=== PATIENT | male | born 1960 | race Caucasian/White ===

== ENCOUNTER 2022-01-31 15:00 | Outpatient (RCR) | payer BC, SELFPAY ==
[2022-01-31 15:04] VITALS: BMI 30.9
[2022-01-31 16:16] VITALS: BMI 30.9
== END 2022-04-18 15:06 | disposition home or self-care (01) ==
LOC: ANHDMC 15:00
PROVIDERS: PCP Internal Medicine; Visit Provider Internal Medicine
DX: E11.65 Type 2 diabetes mellitus with hyperglycemia (principal); Z71.89 Other specified counseling; Z71.3 Dietary counseling and surveillance
CPT/HCPCS: 97802; G0108

== ENCOUNTER 2024-03-18 01:13 | Day surgery (SDC) | payer OTHER, SELFPAY ==
[2024-03-05 14:13] VITALS: BMI 30.7
[2024-03-18 09:28] VITALS: BP 139/111; PULSE 68; RESP 18; TEMP 36.6; O2SAT 97; BMI 31.4
[2024-03-18] MEDS: LACTATED RINGERS 1,000 ML 150 ML IV CONT (09:39)
[2024-03-18 09:41] LABS: Glucose Point of Care 151 mg/dl (65-105)
--- NOTE | 2024-03-18 10:35 | PM.IMHP ---
H&P: HPI History of Present Illness Date/Time: 03/18/24 10:35 Chief Complaint: Screening colonoscopy Narrative: This is the patient's first colonoscopy. There are no GI symptoms and there is no family history of colorectal cancer. Review of Systems Review of Systems: All systems reviewed & are unremarkable except as noted in HPI and below [facility] Past Medical History Medical History (Updated 03/18/24 @ 10:36 by Aguila William MD) Diabetes type 2, controlled Hyperlipidemia Hypertension Social History Social History Smoking status: Never smoker Alcohol intake: current Drinks per week: 6 Substance use: current Substance use type: marijuana Other substance usage details: Gummies Living arrangements: with family Additional living arrangements comments: with sp Spiritual care concerns: No Meds Home Medications and Allergies Home Medications Medication Instructions Recorded Confirmed Type glimepiride 4 mg tablet 4 mg PO BID 03/05/24 03/18/24 History hydrochlorothiazide 12.5 mg tablet 12.5 mg PO DAILY 03/05/24 03/18/24 History hydrocodone 5 mg-acetaminophen 325 1 tablet PO Q6H PRN pain 03/05/24 03/05/24 History mg tablet insulin degludec 100 unit/mL (3 20 unit subcut DAILY 03/05/24 03/18/24 History mL) subcutaneous pen (Tresiba FlexTouch U-100 insulin) lisinopril 20 mg tablet 20 mg PO DAILY 03/05/24 03/18/24 History lorazepam 2 mg tablet 2 mg PO HS PRN sleep 03/05/24 03/05/24 History metformin 500 mg tablet 500 mg PO BID 03/05/24 03/18/24 History omeprazole 20 mg capsule,delayed 20 mg PO DAILY 03/05/24 03/18/24 History release rosuvastatin 40 mg tablet 40 mg PO DAILY 03/05/24 03/18/24 History Allergies Allergy/AdvReac Type Severity Reaction Status Date / Time No Known Allergies Allergy Verified 03/18/24 09:27 Vital Signs Vital Signs - 24 hr 03/18/24 09:28 Temperature 97.9 F Pulse Rate 68 Respiratory Rate 18 Blood Pressure 139/111 H Pulse Oximetry 97 Oxygen Delivery Room Air Exam Const: General: cooperative and healthy appearing Resp: Effort & Inspection: normal respiratory effort and able to speak in complete sentences Auscultation: clear to auscultation bilaterally Cardio: Rate: regular rate Rhythm: regular rhythm GI: Inspection: normal to inspection GI Palp: No No hepatosplenomegaly present Auscultation: normal bowel sounds Rectal Exam: deferred Skin: General skin exam: normal color Psych: Appearance: grossly normal Mental Status: mental status grossly normal Assessment and Plan Assessment and plan (1) Encounter for screening colonoscopy: Code(s): Z12.11 - Encounter for screening for malignant neoplasm of colon Status: Acute Assessment and Plan: The patient is deemed a good candidate for the procedure. Consent signed. Will proceed.
[2024-03-18] MEDS: SIMETHICONE ORAL SUSPENSION 20 MG/0.3 ML 30 ML BOTTLE 0.6 ML IRRIGATION (10:58)
[2024-03-18 11:50] VITALS: BP 116/76; PULSE 59; RESP 18; O2SAT 99
[2024-03-18 12:00] VITALS: BP 107/69; PULSE 61; RESP 18; O2SAT 97
[2024-03-18 12:10] VITALS: BP 107/71; PULSE 60; RESP 18; O2SAT 98
[2024-03-18 12:24] LABS: Glucose Point of Care 114 mg/dl (65-105)
--- OUTSIDE RECORDS SUMMARY | 2024-03-19 03:46 | XMS_ITS | Data Portability ---
Author Organization [place] [facility] [employer], Main Office Address [address] [place] [address] Assessment No assessment recorded. Plan of Treatment Reminders Order Date Submit Date Provider Last Modified By Organization Details Last Modified Time Details Appointments None recorded. Lab fructosam ine, serum 023 023 [email or web address] [facility], [address], [place], [address], 3 17:17:02 lipid panel, serum 024 ARUNAdvisor Client [facility], [address], [place], [address], 4 12:04:28 CMP, serum or plasma 024 ARUNAdvisor Client [facility], [address], [place], [address], 4 12:04:32 TSH, serum or plasma 024 024 ARUNAdvisor Client [facility], [address], [place], [address], 4 12:04:38 T4, free, serum 024 ARUNBaseTrace [facility], [address], [place], [address], 4 12:04:35 PSA, serum or plasma 024 024 ARUNAdvisor Client [facility], [address], [place], [address], 4 12:04:37 magnesium , serum or plasma 024 ARUN [facility], [address], [place], [address], 4 12:04:31 vitamin B12, serum 024 ARUN [facility], [address], [place], [address], 4 12:04:36 HbA1c (hemoglob in A1c), blood 024 MISHICOT [facility], [address], [place], [address], 4 12:04:39 microalbu min/creat inine, mass ratio, urine 024 MISHICOT [facility], [address], [place], [address], 4 12:04:30 CBC w/ auto diff 024 MISHICOT [facility], [address], [place], [address], 4 12:04:33 lipid panel, serum 024 [email or web address] [facility], [address], [place], [address], 4 16:30:56 CMP, serum or plasma 024 [email or web address] [facility], [address], [place], [address], 4 16:30:56 HbA1c (hemoglob in A1c), blood 024 [email or web address] [facility], [address], [place], [address], 4 16:30:56 CBC w/ auto diff 024 024 [email or web address] [facility], [address], [place], [address], 4 16:30:55 Referral None recorded. Procedures None recorded. Surgeries None recorded. Imaging None recorded. Medication Orders None recorded. Patient TargetsNo targets recorded. Patient Instructions Encounter Date Encounter Id Patient Instructions Last Modified By Organization Details Last Modified Time 10/01/2022 [id number] risk assessment* [email or web address] Not availabl e 10/01/2022 16:39:08 INFLUENZA VACCIN E TD/TDAP Recommended today, patient declined Ordered Pa tient will get at local pharmacy/health department PNEUMONIA VACCINE Ordered Recommended today, patient declined Patient will get at local pharmacy/health department Recommen ded at age 65 SHINGLES PSA Ordered No screening necessary patient is up to date COLORECTAL SCREENING DEPRESSION SCREENING Negative BMI Overweight continue your current weight loss efforts try to lose 5% of your body weight try to lose 10% of your body weight NUTRITION PHYSICAL ACTIVITY ALCOHOL USE No alcohol use Occasional/Soci al Use TOBACCO USE LUNG CANCER SCREENING Non Smoker-not indicated SEXUALLY ACTIVE HEPATITIS C SCREENING Not indicated GLUCOSE SCREENING LIPID SCREENING [email or web address] Not available 10/01/2022 16:29:40 Well patient's evaluation risk assessment stable. Follow-up for hypertension-hyperl ipidemia - type 2 diabetes -GERD. Clinically stable. Hemoglobin A1c was 8.2 down from over 14. Increase the glimepiride to 4 mg the morning two in the afternoon. Instructed to call us when he needs a refill so we can change him over to 4 mg tablets. Will repeat a fructosamine level in approximately two weeks after increasing the medication to see if there is in been any improvement in the calculated hemoglobin A1c. 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 Will check a MRI of the cervical Standard immunizations of RSV, COVID, influenza and shingles as recommended spine without contrast. Continue on current Rx follow-up in four months. Portions of the record may have been created with voice recognition software. Occasional wrong-word or â fverx-b-upwlâ substitutions may have occurred due to the inherent limitations of voice recognition software. Read the chart carefully and recognize, using context, where substitutions have occurred. MRI of the cervical spine without contrast for cervical myelopathy Next Appt: 4 Months Approximate Date: 03/29/2023 Not available 11/29/2022 15:43:18 04/04/2023 [id number] Hypertension -hyperlipidemia - type 2 diabetes -obesity class one-GERD clinically stable. Will check blood work consisting of CBC, CMP, lipid, thyroid, hemoglobin A1c and PSA. Will also check a B12 and magnesium level. Will start on some Semaglutide 0.25 mg weekly. Continue on current Rx recheck weight in approximately one month. Follow-up in four months Portions of the record may have been created with voice recognition software. Occasional wrong-word or â frkkz-v-rgftâ substitutions may have occurred due to the inherent limitations of voice recognition software. Read the chart carefully and recognize, using context, where substitutions have occurred. [email or web address] Not available 04/04/2023 15:48:13 07/31/2023 [id number] Follow-up essent ial hypertension, hyperlipidemia, type 2 diabetes, testicular hypofunction and obesity class two. All clinically stable. Check blood work consisting of CBC, CMP, lipid, HA1c and testosterone level. Next Appointment: 4 Months Approximate Date: 11/28/2023 Portions of the record may have been created with voice recognition software. Occasional wrong-word or â rtpuj-f-htnlâ substitutions may have occurred due to the inherent limitations of voice recognition software. Read the chart carefully and recognize, using context, where substitutions have occurred. [email or web address] Not available 07/31/2023 16:58:37 11/27/2023 [id number] risk assessment* Not availabl e 11/27/2023 17:01:11 INFLUENZA VACCIN E TD/TDAP Recommended today, patient declined Ordered Pa tient will get at local pharmacy/health department PNEUMONIA VACCINE Ordered Recommended today, patient declined Patient will get at local pharmacy/health department Recommen ded at age 65 SHINGLES PSA Ordered No screening necessary patient is up to date COLORECTAL SCREENING DEPRESSION SCREENING Negative BMI Overweight continue your current weight loss efforts try to lose 5% of your body weight try to lose 10% of your body weight NUTRITION PHYSICAL ACTIVITY ALCOHOL USE No alcohol use TOBACCO USE former smoker LUNG CANCER SCREENING SEXUALLY ACTIVE HEPATITIS C SCREENING Not indicated GLUCOSE SCREENING LIPID SCREENING [email or web address] Not available 11/27/2023 16:33:44 Health examinati on risk assessment stable. Follow-up for hypertension, hyperlipidemia, type 2 diabetes, spinal stenosis and GERD all clinically stable. Had recent blood work showed his hemoglobin A1c was over 11. Has been placed on insulin increasing from 15-20 units daily. Blood sugars in the morning still running closer to 300. Will continue on current Rx. Patient's report back in one week his blood sugars to see if we need to increase insulin further. We will start back on some pain medications for his back some hydrocodone 5 mg q.i.d. For the back pain. Follow-up in four months Additional Orders - Directives - Recommendations 1. Cologuard Follow Up: 4 Months Approximate Date: 03/26/2024 Portions of the record may have been created with voice recognition software. Occasional wrong-word or â jnfvo-k-vyiqâ substitutions may have occurred due to the inherent limitations of voice recognition software. Read the chart carefully and recognize, using context, where substitutions have occurred. [email or web address] Not available 11/27/2023 17:01:00 Reason for Referral None Reported. Results Created Date Observation Date Name Description Value Unit Range Abnormal Flag Note LastModifiedBy Organization Detail LastModifiedTime 10/01/1910/01/2022 LIPID PANEL , STAND LEATHA cholesterol, total 173 mg/dL <200 normal Not Available [facility] [address] [place], [address], 10/01/2022 08:17:49 10/01/1910/01/2022 LIPID PANEL , STAND LEATHA HDL cholesterol 50 mg/dL > or = 40 normal Not Available [facility] [address] [place], [address], 10/01/2022 08:17:49 10/01/1910/01/2022 LIPID PANEL , STAND LEATHA triglyceride s 241 mg/dL <150 high If a non-f astin g speci men was colle cted, consi jazmine repea t trigl yceri de testi ng on a fasti ng speci men if clini desirae indic ated. Guillermo sheriff et al. J. of Clin. Lipid ol. 2015; 9:129 -169. Not Available [facility] [address] [place], [address], 10/01/2022 08:17:49 10/01/19 23 10/01/2022 LIPID PANEL , STAND LEATHA LDL-choleste rol 90 mg/dL _(lamonte c) normal Refer ence range : <100 Didi able range <100 mg/dL for prima ry preve ntion ; <70 mg/dL for patie nts with CHD or diabe tic patie nts with > or = 2 CHD risk facto rs. LDL-C is now calcu lated using the Calista n-Hop kins fareedu kalyan n, which is a valid ated novel warnero d provi ding carlos a r accur acy than the Fried sharad equat ion in the estim ation of LDL-C . Calista bonilla SS et al. MILO. 2013; 310(1 9): 2061- 2068 (http ://ed ucati on.Qu [employer]. com/f aq/FA Q164) Not Available [facility] [address] [place], [address], 10/01/2022 08:17:49 10/01/19 23 10/01/2022 LIPID PANEL , STAND LEATHA chol/HDLC ratio 3.5 (calc ) <5.0 normal Not Available [facility] [address] [place], [address], 10/01/2022 08:17:49 10/01/19 23 10/01/2022 LIPID PANEL , STAND LEATHA non HDL cholesterol 123 mg/dL _(lamonte c) <130 normal For patie nts with diabe mitchell plus 1 major ASCVD risk facto r, treat ing to a non-H DL-C goal of <100 mg/dL (LDL- C of <70 mg/dL ) is consi dered a thera peuti c optio n. Not Available [place] [address] [place], [address], 10/01/2022 08:17:49 10/01/19 23 10/01/2022 ALBUM IN, RANDO M URINE W/CRE ATINI NE creatinine, random urine 75 mg/dL 20-320 normal Not Available [place] [address] [address] [place], [address], 10/01/2022 08:17:51 10/01/19 23 10/01/2022 ALBUM IN, RANDO M URINE W/CRE ATINI NE albumin, urine 0.7 mg/dL see note: normal Refer ence Range : Refer ence Range Not estab lishe d Not Available [address] [place] [address] [place], [address], 10/01/2022 08:17:51 10/01/19 23 10/01/2022 ALBUM IN, RANDO M URINE W/CRE ATINI NE albumin/crea tinine ratio, random urine 9 mcg/m g_cre at <30 normal The ADA defin es abnor malit ies in album in excre tion as follo ws: Album inuri a Categ ory Resul t (mcg/ mg creat inine ) Erin l to Mildl y incre ased <30 Moder ately incre ased 30-29 9 Sever mau incre ased > OR = 300 The ADA recom mends that at least two of three speci mens colle cted withi n a 3-6 month perio d be abnor mal befor e consi lynda g a patie nt to be withi n a diagn ostic categ ory. Not Available [address] [address] [place], [address], 10/01/2022 08:17:51 10/01/19 23 10/01/2022 COMPR EHENS ALEKSANDR METAB OLIC PANEL , PLASM A glucose 116 mg/dL 65-99 high Fasti ng refer ence inter bharathi For someo ne witho ut known diabe mitchell, a gluco se value betwe en 100 and 125 mg/dL is consi stent with predi abete s and shoul d be confi rmed with a follo w-up test. Not Available [address], [address], 10/01/2022 08:17:52 10/01/19 23 10/01/2022 COMPR EHENS ALEKSANDR METAB OLIC PANEL , PLASM A urea nitrogen (BUN) 16 mg/dL 7-25 normal Not Available [facility] [address], [address], 10/01/2022 08:17:52 10/01/19 23 10/01/2022 COMPR EHENS ALEKSANDR METAB OLIC PANEL , PLASM A creatinine 0.75 mg/dL 0.70-1 .35 normal Not Available [address], [address], 10/01/2022 08:17:52 10/01/19 23 10/01/2022 COMPR EHENS ALEKSANDR METAB OLIC PANEL , PLASM A eGFR 103 mL/mi n/1.7 3m2 > or = 60 normal Not Available [address], [address], 10/01/2022 08:17:52 10/01/1910/01/2022 COMPR EHENS ALEKSANDR METAB OLIC PANEL , PLASM A BUN/creatini ne ratio SEE NOTE: (calc ) 6-22 Not Repor dominic: BUN and Creat inine are withi n refer ence range . Not Available [facility] [address], [address], 10/01/2022 08:17:52 10/01/19 23 10/01/2022 COMPR EHENS ALEKSANDR METAB OLIC PANEL , PLASM A sodium 140 mmol/ L 135-14 6 normal Not Available [facility] [address], [address], 10/01/2022 08:17:52 10/01/19 23 10/01/2022 COMPR EHENS ALEKSANDR METAB OLIC PANEL , PLASM A potassium 4.0 mmol/ L 3.4-4. 8 normal Not Available [address], [address], 10/01/2022 08:17:52 10/01/19 23 10/01/2022 COMPR EHENS ALEKSANDR METAB OLIC PANEL , PLASM A chloride 102 mmol/ L 98-110 normal Not Available [address], [address], 10/01/2022 08:17:52 10/01/19 23 10/01/2022 COMPR EHENS ALEKSANDR METAB OLIC PANEL , PLASM A carbon dioxide 26 mmol/ L 20-32 normal Not Available [address], [address], 10/01/2022 08:17:52 10/01/19 23 10/01/2022 COMPR EHENS ALEKSANDR METAB OLIC PANEL , PLASM A calcium 9.1 mg/dL 8.6-10 .3 normal Not Available [address], [address], 10/01/2022 08:17:52 10/01/19 23 10/01/2022 COMPR EHENS ALEKSANDR METAB OLIC PANEL , PLASM A protein, total 6.4 g/dL 6.4-8. 4 normal Not Available [address], [address], 10/01/2022 08:17:52 10/01/19 23 10/01/2022 COMPR EHENS ALEKSANDR METAB OLIC PANEL , PLASM A albumin 3.8 g/dL 3.6-5. 1 normal Not Available [address], [address], 10/01/2022 08:17:52 10/01/19 23 10/01/2022 COMPR EHENS ALEKSANDR METAB OLIC PANEL , PLASM A globulin 2.6 g/dL_ (calc ) 2.2-4. 0 normal Not Available [address], [address], 10/01/2022 08:17:52 10/01/19 23 10/01/2022 COMPR EHENS ALEKSANDR METAB OLIC PANEL , PLASM A albumin/glob ulin ratio 1.5 (calc ) 0.9-2. 3 normal Not Available [address], [address], 10/01/2022 08:17:52 10/01/19 23 10/01/2022 COMPR EHENS ALEKSANDR METAB OLIC PANEL , PLASM A bilirubin, total 0.4 mg/dL 0.2-1. 2 normal Not Available [address], [address], 10/01/2022 08:17:52 10/01/19 23 10/01/2022 COMPR EHENS ALEKSANDR METAB OLIC PANEL , PLASM A alkaline phosphatase 79 U/L 35-144 normal Not Available [address], [address], 10/01/2022 08:17:52 10/01/19 23 10/01/2022 COMPR EHENS ALEKSANDR METAB OLIC PANEL , PLASM A AST 17 U/L 10-35 normal Not Available [address], [address], 10/01/2022 08:17:52 10/01/19 23 10/01/2022 COMPR EHENS ALEKSANDR METAB OLIC PANEL , PLASM A ALT 33 U/L 9-46 normal Not Available [address], [address], 10/01/2022 08:17:52 10/01/19 23 10/01/2022 CBC (INCL UDES DIFF/ PLT) white blood cell count 7.4 thous and/u L 3.8-10 .8 normal Not Available [address], [address], 10/01/2022 08:17:52 10/01/19 23 10/01/2022 CBC (INCL UDES DIFF/ PLT) red blood cell count 4.51 trini on/uL 4.20-5 .80 normal Not Available [address], [address], 10/01/2022 08:17:52 10/01/19 23 10/01/2022 CBC (INCL UDES DIFF/ PLT) hemoglobin 13.1 g/dL 13.2-1 7.1 low Not Available [address], [address], 10/01/2022 08:17:52 10/01/19 23 10/01/2022 CBC (INCL UDES DIFF/ PLT) hematocrit 39.5 % 38.5-5 0.0 normal Not Available [address], [address], 10/01/2022 08:17:52 10/01/19 23 10/01/2022 CBC (INCL UDES DIFF/ PLT) MCV 87.6 fL 80.0-1 00.0 normal Not Available [facility] [address], [address], 10/01/2022 08:17:52 10/01/19 23 10/01/2022 CBC (INCL UDES DIFF/ PLT) MCH 29.0 pg 27.0-3 3.0 normal Not Available [facility] [address], [address], 10/01/2022 08:17:52 10/01/19 23 10/01/2022 CBC (INCL UDES DIFF/ PLT) MCHC 33.2 g/dL 32.0-3 6.0 normal Not Available [facility] [address], [address], 10/01/2022 08:17:52 10/01/19 23 10/01/2022 CBC (INCL UDES DIFF/ PLT) RDW 14.0 % 11.0-1 5.0 normal Not Available [facility] [address], [address], 10/01/2022 08:17:52 10/01/19 23 10/01/2022 CBC (INCL UDES DIFF/ PLT) platelet count 368 thous and/u L 140-40 0 normal Not Available [facility] [address], [address], 10/01/2022 08:17:52 10/01/19 23 10/01/2022 CBC (INCL UDES DIFF/ PLT) MPV 10.2 fL 7.5-12 .5 normal Not Available [address], [address], 10/01/2022 08:17:52 10/01/19 23 10/01/2022 CBC (INCL UDES DIFF/ PLT) absolute neutrophils 4514 cells /uL 1500-7 800 normal Not Available [address], [address], 10/01/2022 08:17:52 10/01/19 23 10/01/2022 CBC (INCL UDES DIFF/ PLT) absolute lymphocytes 1917 cells /uL 850-39 00 normal Not Available [facility] [address], [address], 10/01/2022 08:17:52 10/01/19 23 10/01/2022 CBC (INCL UDES DIFF/ PLT) absolute monocytes 607 cells /uL 200-95 0 normal Not Available [facility] [address], [address], 10/01/2022 08:17:52 10/01/19 23 10/01/2022 CBC (INCL UDES DIFF/ PLT) absolute eosinophils 281 cells /uL 15-500 normal Not Available [address], [address], 10/01/2022 08:17:52 10/01/19 23 10/01/2022 CBC (INCL UDES DIFF/ PLT) absolute basophils 81 cells /uL 0-200 normal Not Available [facility] [address], [address], 10/01/2022 08:17:52 10/01/19 23 10/01/2022 CBC (INCL UDES DIFF/ PLT) neutrophils 61 % normal Not Available [address], [address], 10/01/2022 08:17:52 10/01/19 23 10/01/2022 CBC (INCL UDES DIFF/ PLT) lymphocytes 25.9 % normal Not Available [address], [address], 10/01/2022 08:17:52 10/01/19 23 10/01/2022 CBC (INCL UDES DIFF/ PLT) monocytes 8.2 % normal Not Available [address], [address], 10/01/2022 08:17:52 10/01/1910/01/2022 CBC (INCL UDES DIFF/ PLT) eosinophils 3.8 % normal Not Available [facility] [address], [address], 10/01/2022 08:17:52 10/01/19 23 10/01/2022 CBC (INCL UDES DIFF/ PLT) basophils 1.1 % normal Not Available [address], [address], 10/01/2022 08:17:52 10/01/19 23 10/01/2022 T4, FREE T4, free 1.1 NG/dL 0.8-1. 8 normal Not Available [facility] [address], [address], 10/01/2022 08:17:53 10/01/1910/01/2022 TSH TSH 0.92 mIU/L 0.40-4 .50 normal Not Available [facility] [address], [address], 10/01/2022 08:17:54 10/01/1910/01/2022 HEMOG LOBIN A1C hemoglobin A1C 8.2 %_of_ total _HGB <5.7 high For someo ne witho ut known diabe mitchell, a hemog lobin A1c value of 6.5% or great er indic ates that they may have diabe mitchell and this shoul d be confi rmed with a follo w-up test. For someo ne with known diabe mitchell, a value <7% indic ates that their diabe mitchell is well contr olled and a value great er than or equal to 7% indic ates subop timal contr ol. A1c targe ts shoul d be indiv idual ized based on durat ion of diabe mitchell, age, comor bid condi tions , and other consi derat ions. Curre ntly, no conse nsus exist s sharon moreno use of hemog lobin A1c for diagn osis of diabe mitchell for child daysi. Not Available [facility] [address], [address], 10/01/2022 08:17:54 10/01/1910/07/2022 MAGNE SIUM magnesium 1.8 mg/dL 1.5-2. 5 normal Not Available [facility] [address], [address], 10/08/2022 00:29:38 10/01/19 23 10/07/2022 FRUCT OSAMI NE fructosamine 295 umol/ L 205-28 5 high Not Available [facility] [address], [address], 10/08/2022 00:29:38 10/01/19 23 10/07/2022 VITAM IN B12 vitamin B12 392 pg/mL 200-11 00 normal Pleas e Note: Altho ugh the refer ence range for vitam in B12 is 200-1 100 pg/mL , it has been repor dominic that betwe en 5 and 10% of patie nts with value s betwe en 200 and 400 pg/mL may exper ience neuro psych iatri c and hemat ologi c abnor malit ies due to occul t B12 defic iency ; less than 1% of patie nts with value s above 400 pg/mL will have sympt oms. Not Available [address], [address], 10/08/2022 00:29:39 11/14/19 23 11/13/2022 LIPID PANEL , STAND LEATHA cholesterol, total 175 mg/dL <200 normal Not Available [address], [address], 11/13/2022 19:51:55 11/14/19 23 11/13/2022 LIPID PANEL , STAND LEATHA HDL cholesterol 56 mg/dL > or = 40 normal Not Available [address], [address], 11/13/2022 19:51:55 11/14/19 23 11/13/2022 LIPID PANEL , STAND LEATHA triglyceride s 261 mg/dL <150 high If a non-f astin g speci men was colle cted, consi jazmine repea t trigl yceri de testi ng on a fasti ng speci men if clini desirae indic ated. Guillermo sheriff et al. J. of Clin. Lipid ol. 2015; 9:129 -169. Not Available [address], [address], 11/13/2022 19:51:55 11/14/19 23 11/13/2022 LIPID PANEL , STAND LEATHA LDL-choleste rol 85 mg/dL _(lamonte c) normal Refer ence range : <100 Didi able range <100 mg/dL for prima ry preve ntion ; <70 mg/dL for patie nts with CHD or diabe tic patie nts with > or = 2 CHD risk facto rs. LDL-C is now calcu lated using the Calista n-Hop kins calcu kalyan n, which is a valid ated novel metho d provi josh carlos a r accur acy than the Fried sharad equat ion in the estim ation of LDL-C . Calista bonilla SS et al. MILO. 2013; 310(1 9): 2061- 2068 (http ://ed ucati on.Qu [employer]/f aq/FA Q164) Not Available [facility] [address] [place], [address], 11/13/2022 19:51:55 11/14/19 23 11/13/2022 LIPID PANEL , STAND LEATHA chol/HDLC ratio 3.1 (calc ) <5.0 normal Not Available [facility] [address] [place], [address], 11/13/2022 19:51:55 11/14/19 23 11/13/2022 LIPID PANEL , STAND LEATHA non HDL cholesterol 119 mg/dL _(lamonte c) <130 normal For patie nts with diabe mitchell plus 1 major ASCVD risk facto r, treat ing to a non-H DL-C goal of <100 mg/dL (LDL- C of <70 mg/dL ) is consi dered a thera peuti c optio n. Not Available [facility] [address] [place], [address], 11/13/2022 19:51:55 11/14/1911/13/2022 COMPR EHENS ALEKSANDR METAB OLIC PANEL , PLASM A glucose 232 mg/dL 65-99 high Fasti ng refer ence inter bharathi For someo ne witho ut known diabe mitchell, a gluco se value >125 mg/dL indic ates that they may have diabe mitchell and this shoul d be confi rmed with a follo w-up test. Not Available [address], [address], 11/13/2022 19:51:56 11/14/19 23 11/13/2022 COMPR EHENS ALEKSANDR METAB OLIC PANEL , PLASM A urea nitrogen (BUN) 18 mg/dL 7-25 normal Not Available [facility] [address], [address], 11/13/2022 19:51:56 11/14/19 23 11/13/2022 COMPR EHENS ALEKSNADR METAB OLIC PANEL , PLASM A creatinine 0.91 mg/dL 0.70-1 .35 normal Not Available [address], [address], 11/13/2022 19:51:56 11/14/19 23 11/13/2022 COMPR EHENS ALEKSANDR METAB OLIC PANEL , PLASM A eGFR 96 mL/mi n/1.7 3m2 > or = 60 normal Not Available [address], [address], 11/13/2022 19:51:56 11/14/19 23 11/13/2022 COMPR EHENS ALEKSANDR METAB OLIC PANEL , PLASM A BUN/creatini ne ratio SEE NOTE: (calc ) 6-22 Not Repor dominic: BUN and Creat inine are withi n refer ence range . Not Available [address], [address], 11/13/2022 19:51:56 11/14/19 23 11/13/2022 COMPR EHENS ALEKSANDR METAB OLIC PANEL , PLASM A sodium 142 mmol/ L 135-14 6 normal Not Available [facility] [address], [address], 11/13/2022 19:51:56 11/14/19 23 11/13/2022 COMPR EHENS ALEKSANDR METAB OLIC PANEL , PLASM A potassium 4.0 mmol/ L 3.4-4. 8 normal Not Available [address], [address], 11/13/2022 19:51:56 11/14/19 23 11/13/2022 COMPR EHENS ALEKSANDR METAB OLIC PANEL , PLASM A chloride 104 mmol/ L 98-110 normal Not Available [address], [address], 11/13/2022 19:51:56 11/14/19 23 11/13/2022 COMPR EHENS ALEKSANDR METAB OLIC PANEL , PLASM A carbon dioxide 25 mmol/ L 20-32 normal Not Available [address], [address], 11/13/2022 19:51:56 11/14/19 23 11/13/2022 COMPR EHENS ALEKSANDR METAB OLIC PANEL , PLASM A calcium 9.4 mg/dL 8.6-10 .3 normal Not Available [address], [address], 11/13/2022 19:51:56 11/14/19 23 11/13/2022 COMPR EHENS ALEKSANDR METAB OLIC PANEL , PLASM A protein, total 6.4 g/dL 6.4-8. 4 normal Not Available [address], [address], 11/13/2022 19:51:56 11/14/19 23 11/13/2022 COMPR EHENS ALEKSANDR METAB OLIC PANEL , PLASM A albumin 3.5 g/dL 3.6-5. 1 low Not Available [address], [address], 11/13/2022 19:51:56 11/14/19 23 11/13/2022 COMPR EHENS ALEKSANDR METAB OLIC PANEL , PLASM A globulin 2.9 g/dL_ (calc ) 2.2-4. 0 normal Not Available [address], [address], 11/13/2022 19:51:56 11/14/19 23 11/13/2022 COMPR EHENS ALEKSANDR METAB OLIC PANEL , PLASM A albumin/glob ulin ratio 1.2 (calc ) 0.9-2. 3 normal Not Available [address], [address], 11/13/2022 19:51:56 11/14/19 23 11/13/2022 COMPR EHENS ALEKSANDR METAB OLIC PANEL , PLASM A bilirubin, total 0.3 mg/dL 0.2-1. 2 normal Not Available [address], [address], 11/13/2022 19:51:56 11/14/19 23 11/13/2022 COMPR EHENS ALEKSANDR METAB OLIC PANEL , PLASM A alkaline phosphatase 81 U/L 35-144 normal Not Available [address], [address], 11/13/2022 19:51:56 11/14/19 23 11/13/2022 COMPR EHENS ALEKSANDR METAB OLIC PANEL , PLASM A AST 21 U/L 10-35 normal Not Available [address], [address], 11/13/2022 19:51:56 11/14/19 23 11/13/2022 COMPR EHENS ALEKSANDR METAB OLIC PANEL , PLASM A ALT 41 U/L 9-46 normal Not Available [address], [address], 11/13/2022 19:51:56 11/14/1911/21/2022 FRUCT OSAMI NE fructosamine 260 umol/ L 205-28 5 Not Available [address], [address], 11/21/2022 02:27:51 11/29/1911/28/2022 HEMOG LOBIN A1C hemoglobin A1C 7.4 %_of_ total _HGB <5.7 high For [place] witho ut known diabe mitchell, a hemog lobin A1c value of 6.5% or great er indic ates that they may have diabe mitchell and this shoul d be confi rmed with a follo w-up test. For [place] with known diabe mitchell, a value <7% indic ates [facility] [id number]|2024-03-17 15:30:55|2024-03-17 15:30:55|[id number]||||"
== END 2024-03-18 12:32 | disposition home or self-care (01) ==
PROVIDERS: PCP Internal Medicine; Visit Provider Internal Medicine Gastroenterology
PROC: 0DJD8ZZ Inspection of Lower Intestinal Tract, Via Natural or Artificial Opening Endoscopic (ICD-10-PCS; CPT 45378; principal; 2024-03-18 11:00)
DX: Z12.11 Encounter for screening for malignant neoplasm of colon (principal); D12.2 Benign neoplasm of ascending colon; D12.4 Benign neoplasm of descending colon; K62.1 Rectal polyp; E11.9 Type 2 diabetes mellitus without complications; F12.90 Cannabis use, unspecified, uncomplicated; Z79.84 Long term (current) use of oral hypoglycemic drugs; Z79.4 Long term (current) use of insulin
CPT/HCPCS: 45390; 82948; 88305; J2003; J2704; J7120